=== PATIENT | female | born 1955 | race African-American/Black ===

== ENCOUNTER 2024-07-20 18:50 | Inpatient (IN) | payer MEDICARE, BC ==
[~2024-07-20] VITALS: Ht 152.4 cm; Wt 60.3 kg
[~2024-07-20 18:50] MED LIST: CLON0.1T
[2024-07-20 20:00] VITALS: BP_SYST 152; BP_SYST 157; BP_DIAS 58; BP_DIAS 60; PULSE 94; PULSE 99; RESP 18; RESP 19; TEMP 36.72516; TEMP 36.7516; O2SAT 98
[2024-07-20] MEDS ORDERED: DIPHENHYDRAMINE 50MG/ML VIAL IV PRN (20:30)
[2024-07-20] MEDS ORDERED: MAGNESIUM/ALUMINUM HYDROXIDE/SIMETHICONE 30ML UDC PO PRN (20:30)
[2024-07-20] MEDS ORDERED: GUAIFENESIN-DM 200MG-20MG/10ML UDC PO PRN (20:30)
[2024-07-20] MEDS ORDERED: ONDANSETRON HCL 4MG/2ML INJ IV PRN (20:30)
[2024-07-20] MEDS ORDERED: NALOXONE HCL 0.4MG/ML 1ML VIAL IV PRN (20:30)
[2024-07-20] MEDS: CLONIDINE 0.2MG TABLET PO SCH (21:42)
[2024-07-20] MEDS: LIDOCAINE 5% PATCH TOP SCH (21:44)
[2024-07-20] MEDS: PIPERACILLIN/TAZO 3.375G/50ML 50 ML IV SCH (21:47)
[2024-07-20] MEDS: DEXT 5%/0.45% NACL 1000ML 1,000 ML IV SCH (21:58)
[2024-07-20] MEDS: VERAPAMIL HCL 80 MG TABLET PO SCH (22:26)
[2024-07-21] MEDS: IPRATROPIUM/ALBUTEROL 0.5-3(2.5)MG/3ML NEB HHN SCH (00:42)
[2024-07-21 00:43] VITALS: PULSE 89; RESP 20; O2SAT 99
[2024-07-21] MEDS: ACETYLCYSTEINE 200MG/ML 20% VIAL 4ML INH SCH (00:43)
[2024-07-21] MEDS ORDERED: VERA240T94 PO (04:23)
[2024-07-21] MEDS ORDERED: ATOR20TA65 PO (04:23)
[2024-07-21 04:43] VITALS: PULSE 84; RESP 18; O2SAT 99
[2024-07-21] MEDS: ACETAMINOPHEN 325MG TABLET PO PRN (06:19)
[2024-07-21 08:00] VITALS: BP 131/76; PULSE 76; RESP 18; TEMP 36.61404; O2SAT 100
[2024-07-21] MEDS: PANTOPRAZOLE SODIUM 40 MG/VIAL IV SCH (09:01)
[2024-07-21] MEDS: ENOXAPARIN 40MG/0.4ML SYR SUBCUT SCH (09:02)
[2024-07-21] MEDS ORDERED: LIDOCAINE 5% PATCH TOP SCH (10:30)
[2024-07-21] MEDS: TRAMADOL 50MG TABLET PO PRN (10:33)
[2024-07-21 14:30] VITALS: BP 158/77; PULSE 78; RESP 16; TEMP 36.72516; O2SAT 99
[2024-07-21 14:37] VITALS: PULSE 78
[2024-07-26] MEDS ORDERED: CLONIDINE HCL 0.3MG/24HR PATCH TD SCH (09:00)
== END 2024-07-21 15:35 | disposition left against medical advice (07) | DRG 70 ==
PROVIDERS: ADMIT Physical Medicine & Rehabilitation Spinal Cord Injury Medicine; ATTEND Internal Medicine
DX: G93.41 Metabolic encephalopathy (principal); A41.9 Sepsis, unspecified organism; E72.20 Disorder of urea cycle metabolism, unspecified; K56.50 Intestinal adhesions [bands], unspecified as to partial versus complete obstruction; D64.9 Anemia, unspecified; M06.9 Rheumatoid arthritis, unspecified; I10 Essential (primary) hypertension; E78.00 Pure hypercholesterolemia, unspecified; R53.81 Other malaise; R26.9 Unspecified abnormalities of gait and mobility; E83.42 Hypomagnesemia; Z53.29 Procedure and treatment not carried out because of patient's decision for other reasons; E87.6 Hypokalemia; R11.0 Nausea; R53.1 Weakness; E87.5 Hyperkalemia; E78.5 Hyperlipidemia, unspecified; Z90.49 Acquired absence of other specified parts of digestive tract; Z88.5 Allergy status to narcotic agent; Z91.81 History of falling; Z82.49 Family history of ischemic heart disease and other diseases of the circulatory system
CPT/HCPCS: 92523; 92610; 94640; 97110; 97162; 97166; 97530; J1650; J2470; J2543; J7608